=== PATIENT | female | born 1955 | race Caucasian/White ===

== ENCOUNTER → 2020-05-28 | Outpatient (CLI) | payer OTHER | END | disposition home or self-care (01) | LOC: RESCLI 08:47 | PROVIDERS: ATTEND Student in an Organized Health Care Education/Training Program | DX: E78.5 Hyperlipidemia, unspecified (principal); N95.1 Menopausal and female climacteric states; K21.9 Gastro-esophageal reflux disease without esophagitis; Z76.89 Persons encountering health services in other specified circumstances; Z68.41 Body mass index [BMI] 40.0-44.9, adult; Z79.899 Other long term (current) drug therapy; Z90.49 Acquired absence of other specified parts of digestive tract ==